=== PATIENT | female | born 1970 | race Caucasian/White ===

== ENCOUNTER 2019-01-20 03:15 | Emergency (ER) | payer OTHER ==
[~2019-01-20] VITALS: Ht 165.1 cm; Wt 113.4 kg
[~2019-01-20 03:15] MED LIST: ALLEGRA-D 12 H1 EAC1 PO; FLEXERIL PO; HYDROCODON-ACE1 EAC7 PO; L-LYSINE600 MG PO; NAPROSYN500 MG PO; NORCO 5-325 TA1 EACH PO; PAXIL30 MG PO; PRILOSEC40 MG PO; TRINATE TABLET1 TAB PO; XANAX 0.5 MG0.5 MG PO
[2019-01-20] MEDS ORDERED: CYMBALTA60 MG (03:28)
[2019-01-20] MEDS ORDERED: ZANAFLEX4 M1 (03:29)
[2019-01-20] MEDS ORDERED: GABAPENTIN600 M1 (03:29)
[2019-01-20] MEDS ORDERED: IBU800 MG (03:30)
[2019-01-20] MEDS ORDERED: PROPRANOLOL 20M20 M1 (03:30)
[2019-01-20] MEDS ORDERED: VITAMIN B-12 (03:31)
[2019-01-20] MEDS ORDERED: CHEWABLE-VITE1 EAC1 (03:31)
[2019-01-20] MEDS ORDERED: AJOVY225 MG/1.5 (03:31)
[2019-01-20 03:37] LABS: ABSOLUTE BASOPHILS 0.1 thou/uL (0.0-0.2); ABSOLUTE EOSINOPHILS 0.1 thou/uL (0.0-0.7); ABSOLUTE LYMPHOCYTES 4.1 thou/uL (0.8-5.3); ABSOLUTE MONOCYTES 0.9 thou/uL (0.0-1.2); ABSOLUTE NEUTROPHILS 7.4 thou/uL (1.6-8.1); BASOPHILS 0.9 %; HEMATOCRIT 44.1 % (37.0-47.0); HEMOGLOBIN 14.4 gm/dL (12.0-15.0); LYMPHOCYTES 32.3 %; MCH 28.2 pg (26.0-34.0); MCHC 32.7 g/dL (28.0-37.0); MCV 86.4 fL (80.0-100.0); MONOCYTES 7.1 %; MPV 7.5 fl. (7.2-11.1); NUCLEATED RBCS 0 /100WBC; PLATELET COUNT* 488 thou/uL (150-400); POLYS 58.7 %; RDW-CV 17.4 % (10.5-14.5); WBC 12.7 thou/uL (4.0-11.0)
[2019-01-20 03:44] LABS: CALCIUM 8.2 mg/dL (8.5-10.1); CREATININE 0.8 mg/dL (0.6-1.3); POTASSIUM 4.1 mmol/L (3.5-5.1); PROTIME 10.1 Seconds (9.20-11.50)
[2019-01-20 03:52] LABS: URINE BILIRUBIN NEGATIVE (Negative); URINE BLOOD NEGATIVE (Negative); URINE CLARITY CLEAR; URINE COLOR YELLOW; URINE GLUCOSE-RANDOM NEGATIVE (Negative); URINE KETONES NEGATIVE (Negative); URINE LEUKOCYTES-REFLEX NEGATIVE (Negative); URINE NITRITE-REFLEX NEGATIVE (Negative); URINE PROTEIN NEGATIVE (Negative); URINE SPECIFIC GRAVITY <= 1.005 (1.005-1.030); URINE UROBILINOGEN 0.2 E.U./dl (0.2-1.0)
[2019-01-20 03:55] LABS: ALBUMIN 2.7 g/dL (3.4-5.0); TOTAL BILIRUBIN 0.2 mg/dL (<0.1-1.0); TOTAL PROTEIN 5.5 g/dL (6.4-8.2)
[2019-01-20] MEDS ORDERED: CARAFATE 1 GM TA1 GM PO (05:32)
[2019-01-20 05:41] VITALS: BP 113/52
--- NOTE | 2019-01-20 15:05 | EKG ---
[place] [address] ELECTROCARDIOGRAM REPORT Name: OLAMIDE MILLER Room: [facility]#: [id number] Admission: 01/20/19 Attend Phys: Discharge: 01/20/19 Date of : 70 Report #: [id number] THIS REPORT FOR: //name// [facility] ED Test Date: 2019-01-20 Test Time: 03:21:24 Pat Name: OLAMIDE MILLER Department: Room: Gender: F Pre Billing Clinician: SALLY : 1970 Requested By: Elena Pleitez Order Number: [id number] MD: Shayne Olivares Measurements Intervals [place] Rate: 87 P: 48 GA: 162 QRS: 65 QRSD: 89 T: 43 QT: 344 QTc: 414 Interpretive Statements Sinus rhythm Borderline low voltage, extremity leads No previous ECG available for comparison Electronically Signed On 01-20-2019 15:05:45 CDT by Shayne Olivares [email or web address] <ELECTRONICALLY SIGNED> By: Shayne Olivares MD, [facility] 01/20/19 1505 [id number] Shayne Olivares MD, FACC /EPI
[2019-01-21 09:01] LABS: ANISOCYTOSIS 1+; PLATELET ESTIMATE ADEQUATE
== END 2019-01-20 05:43 | disposition home or self-care (01) ==
LOC: M.ERS 03:15
PROVIDERS: Emergency Medicine
DX: S27.818A Other injury of esophagus (thoracic part), initial encounter (principal); R11.2 Nausea with vomiting, unspecified; R19.7 Diarrhea, unspecified; M19.90 Unspecified osteoarthritis, unspecified site; Z88.0 Allergy status to penicillin; X58.XXXA Exposure to other specified factors, initial encounter; Y93.89 Activity, other specified; Y92.89 Other specified places as the place of occurrence of the external cause; Y99.8 Other external cause status

== ENCOUNTER 2020-12-27 08:32 | Emergency (ER) | payer OTHER ==
[~2020-12-27] VITALS: Ht 165.1 cm; Wt 98.4 kg
[~2020-12-27 08:32] MED LIST changes: +AJOVY225 MG/1.5; +CARAFATE 1 GM TA1 GM PO; +CHEWABLE-VITE1 EAC1; +CYMBALTA60 MG; +GABAPENTIN600 M1; +IBU800 MG; +PROPRANOLOL 20M20 M1; +VITAMIN B-12; +ZANAFLEX4 M1
[2020-12-27 10:00] VITALS: BP 137/68
== END 2020-12-27 10:01 | disposition home or self-care (01) ==
LOC: M.ERS 08:32
DX: S53.104D Unspecified dislocation of right ulnohumeral joint, subsequent encounter (principal); F32.9 Major depressive disorder, single episode, unspecified; F41.9 Anxiety disorder, unspecified; K21.9 Gastro-esophageal reflux disease without esophagitis; Z79.899 Other long term (current) drug therapy; Z88.0 Allergy status to penicillin; Z88.8 Allergy status to other drugs, medicaments and biological substances; X58.XXXD Exposure to other specified factors, subsequent encounter